=== PATIENT | male | born 1960 | race Caucasian/White ===

== ENCOUNTER 2020-08-25 08:01 | Outpatient (CLI) | payer OTHER, SELFPAY ==
[2020-08-25 08:20] VITALS: BMI 26.6
--- NOTE | 2020-08-25 08:38 | ECG_ITS ---
[facility] Test Date: 2020-08-25 Pat Name: Mario Delvalle Department: Room: Gender: Male [employer]: : 1960 Requested By: Anastacio Hill Order Number: [id number] Sanaz MD: Anastacio Hill M.D. Interpretive Statements NAME OF STUDY: EXERCISE SESTAMIBI STRESS TEST INDICATION: [Shortness of Breath] Procedure: At the baseline, the blood pressure was 143/79 mmHg, with a heart rate of 71 bpm. The electrocardiogram showed normal sinus rhythm, normal with normal ST and T waves. Patient exercised for a total of 7 minutes reaching 10.2METS. He reached a maximum heart rate of 141bpm that is 87% of maximum predicted heart rate. Blood pressure at the end of stress phase was 196/75mmHg. The EKG at the peak infusion revealed sinus rhythm with no significant ST-T wave changes. Blood pressure at the end of the recovery phase was 158/76 mmHg with a heart rate of 97 bpm. Conclusion: 1. Normal EKG response to Exercise 2. No exercise induced chest pain or cardiac arrhythmia. 3. Normal blood pressure and heart rate response. 4. Sestamibi/sestamibi perfusion scan pending; see separate report. Electronically Signed On 09-17-2020 17:38:48 CDT by Anastacio Hill M.D. [email or web address]
--- NOTE | 2020-08-25 08:38 | NMCV_ITS ---
NM davie perf SPECT r/s* [id number] Mario Delvalle Age: 59 Gender: M : 1960 Exam Date: 08/25/2020 08:38 Ordering Phys: Anastacio Hill M.D ([email or web address]) Technologist: DAVID Castellon Exam Location: [facility] [place] Indications: SHORTNESS OF BREATH STRESS TEST Please see separate stress test report in [facility] for full findings IMAGE PROTOCOL Rest/Stress 1 Exercise Day Radiopharmaceutical Dose (mCi) Administration Site Administered by Rest: Tc-99m 10.5 IV DAVID Castellon Sestamibi Stress:Tc-99m 33.0 IV DAVID Otero Sestamibi Rest: 25-Aug-2020 60 Discovery 630 Stress: 25-Aug-2020 15 Discovery 630 Radiopharmaceutical was injected at 85 % maximum heart rate. Images obtained in supine and prone position. SPECT RESULTS Technical Quality: Excellent Raw Data Analysis: Normal Image Corrections: No attenuation or motion correction applied Summed Stress Score: 0 Summed Rest Score: 1 Summed Difference Score: 0 PERFUSION FINDINGS There is homogenous radiotracer uptake throughout the myocardium. No evidence of ischemia is seen. FUNCTIONAL RESULTS (calculated via Gated SPECT) Stress Image LV EF (%): 74 Stress EDV (mL):74 TID: 0.76 Stress ESV (mL):19 FUNCTIONAL FINDINGS: There is normal left ventricular systolic function. LV EF is 74% IMPRESSIONS 1. Normal myocardial perfusion imaging with no evidence of ischemia. 2. LV systolic function is normal Anastacio Hill MD (Electronically Signed) Final Date: 25 August 2020 15:34 S
--- NOTE | 2020-08-25 11:05 | SUR.PREOP ---
Patient reports no pain or discomfort prior to the start of the procedure.
[2020-08-25 11:41] VITALS: BP 158/76; PULSE 99
--- NOTE | 2020-08-25 12:00 | USCV_ITS ---
Bertygrita Mario Age: 59 Gender: M : 1960 Exam Date: 08/25/2020 12:40 Ordering Phys: Anastacio Hill M.D ([email or web address]) Technologist: Antonietta Navarrete [place] [facility] [place]ication: CHEST PAIN BP: 143 / 78 HR: 76 Rhythm: Sinus Technical Quality: Adequate MEASUREMENTS (Male / Female) Normal Values 2D ECHO LV Diastolic Diameter PLAX 3.9 cm 4.2 - 5.9 / 3.9 - 5.3 cm LV Systolic Diameter PLAX 3.1 cm LV Chamber Size 3.4 cm IVS Diastolic Thickness 1.2 cm 0.6 - 1.0 / 0.6 - 0.9 cm IVS Systolic Thickness 1.4 cm LVPW Diastolic Thickness 1.2 cm 0.6 - 1.0 / 0.6 - 0.9 cm LVPW Systolic Thickness 1.3 cm RV Chamber Size 3.2 cm LVOT Diameter 2.1 cm LV Ejection Fraction 2D Teich 39.2 % LV Ejection Fraction MOD 2C 69.3 % LV Ejection Fraction 2C AL 70.4 % LA Diameter 2.7 cm LA Width 2.8 cm LA Height 3.6 cm RA Width 3.7 cm RA Height 4.5 cm Aorta at Sinotubular Diameter 3.1 cm M-MODE LV Diastolic Diameter MM 4.6 cm 4.2 - 5.9 / 3.9 - 5.3 cm LV Systolic Diameter MM 3.1 cm LV Ejection Fraction MM Teich 59.9 % IVS Diastolic Thickness MM 0.9 cm 0.6 - 1.0 / 0.6 - 0.9 cm IVS Systolic Thickness MM 1.6 cm LVPW Diastolic Thickness MM 1.1 cm 0.6 - 1.0 / 0.6 - 0.9 cm LVPW Systolic Thickness MM 1.6 cm Aortic Annulus Diameter 3.5 cm LA Ao Ratio MM 0.8 MV E Point Septal Separation 0.8 cm DOPPLER AV Peak Velocity 131.0 cm/s LVOT Peak Velocity 97.0 cm/s AV Area Cont Eq vti 2.2 cm squared AV Area Cont Eq pk 2.5 cm squared MV Area PHT 4.5 cm squared Mitral E to A Ratio 1.6 MV E' Velocity 43.0 cm/s Mitral E to MV E' Ratio 6.8 Mitral E to LV E' Lateral Ratio 6.5 Mitral E to LV E' Septal Ratio 7.0 TR Peak Velocity 123.2 cm/s TR Peak Gradient 6.1 mmHg TR Mean Velocity 86.2 cm/s TR Mean Gradient 3.2 mmHg TR Velocity Time Integral 27.5 cm TV Peak E Velocity 55.0 cm/s Right Atrial Pressure 3.0 mmHg Pulmonary Artery Systolic Pressu 9.1 mmHg PV Peak Velocity 56.0 cm/s RV Acceleration Time 0.1 s RV Ejection Time 0.3 s RV AcT/ET 0.4 FINDINGS Left Ventricle Normal left ventricular size. LV systolic function is normal with EF of 55-60%. No regional wall motion abnormalities. Normal diastolic function Right Ventricle The right ventricle is normal in size and function. Right Atrium The right atrium is normal in size. Left Atrium The left atrium is normal in size. Mitral Valve Structurally normal mitral valve without significant stenosis or prolapse. There is no mitral regurgitation. Aortic Valve Structurally normal aortic valve without significant sclerosis or stenosis. There is no aortic regurgitation. Tricuspid Valve Structurally normal tricuspid valve without significant stenosis or regurgitation. Insufficient TR jet to calculate RVSP Pulmonic Valve Structurally normal pulmonic valve without significant stenosis. There is no pulmonic regurgitation. Pericardium Normal pericardium without effusion. Aorta Normal ascending aorta dimension. CONCLUSIONS LV systolic function is normal with EF of 55-60% Diastolic function is normal No significant valvular heart disease No comparison studies are available Anastacio Hill MD (Electronically Signed) Final Date: 03 September 2020 14:49 S
== END 2020-08-25 08:02 | disposition home or self-care (01) ==
PROVIDERS: PCP Family Medicine; Visit Provider Internal Medicine
DX: R06.02 Shortness of breath (principal)
CPT/HCPCS: 78452; 93017; 93306; A9500

== ENCOUNTER → 2021-12-13 14:53 | Outpatient (BNVA) | payer OTHER, SELFPAY | PROVIDERS: PCP Family Medicine; Visit Provider Internal Medicine | DX: R06.02 Shortness of breath (principal); E78.5 Hyperlipidemia, unspecified; I10 Essential (primary) hypertension; F17.210 Nicotine dependence, cigarettes, uncomplicated | CPT/HCPCS: 99213 ==

== ENCOUNTER → 2022-12-12 12:42 | Outpatient (BNVA) | payer OTHER, SELFPAY | PROVIDERS: PCP Family Medicine; Visit Provider Internal Medicine | DX: R06.02 Shortness of breath (principal); E78.5 Hyperlipidemia, unspecified; I10 Essential (primary) hypertension; F17.210 Nicotine dependence, cigarettes, uncomplicated | CPT/HCPCS: 99214 ==

== ENCOUNTER → 2023-12-17 15:40 | Outpatient (BNVA) | payer OTHER, SELFPAY | PROVIDERS: PCP Family Medicine; Visit Provider Internal Medicine | DX: R06.02 Shortness of breath (principal); E78.5 Hyperlipidemia, unspecified; I10 Essential (primary) hypertension; Z72.0 Tobacco use | CPT/HCPCS: 99214 ==

== ENCOUNTER → 2024-07-22 10:20 | Outpatient (BNVA) | payer OTHER, SELFPAY | PROVIDERS: PCP Family Medicine; Visit Provider Internal Medicine Cardiovascular Disease | DX: R00.2 Palpitations (principal); I49.1 Atrial premature depolarization; I49.3 Ventricular premature depolarization; I47.20 Ventricular tachycardia, unspecified; I49.8 Other specified cardiac arrhythmias; I47.10 Supraventricular tachycardia, unspecified | CPT/HCPCS: 93242 ==

== ENCOUNTER → 2024-12-15 14:38 | Outpatient (BNVA) | payer OTHER, SELFPAY | PROVIDERS: PCP Family Medicine; Visit Provider Internal Medicine | DX: R00.2 Palpitations (principal); I10 Essential (primary) hypertension; E78.5 Hyperlipidemia, unspecified; F17.210 Nicotine dependence, cigarettes, uncomplicated | CPT/HCPCS: 99214 ==